=== PATIENT | male | born 1960 | race African-American/Black ===

== ENCOUNTER → 2016-12-31 | Outpatient (CLI) | payer OTHER ==
[~2016-12-31] MED LIST: ALBUTEROL17 GM INH; ALLERCLEAR10 MG PO; AMLODIPINE BESYL5 MG PO; ASPIRIN81 M2 PO; GABAPENTIN300 M2 PO; LOSARTAN POTAS100 MG PO; METHOCARBAMOL500 MG PO; NICOTINE TRANSD21 MG EXT; OMEPRAZOLE40 M1 PO; OXYCODON HCL-1 UDTA1 PO; PANTOPRAZOLE SO40 MG PO; PAROXETINE HCL20 MG PO; PRAVASTATIN SOD40 MG PO; SYMBICORT INH; VIAGRA; VIAGRA PO
--- NOTE | ~2016-12-31 | US136 ---
[facility] A Service of [facility] & [facility] RADIOLOGY TEXT RESULTS PATIENT: RAQUEL HARDIN LOCATION: CNIV : 64 UNIT #: [id number] AGE: [address]: Radha Art MD SEX: M ORDER DR: [id number] [facility] [address] [place], [place] [address] [id number] O MR#: [id number] Acc #: [id number] NAME: RAQUEL HARDIN : 1960 SEX: M STUDY DATE/TIME: 12/31/2016 10:07 UNIT: CNIV ROOM: STUDY DESCRIPTION: U/L Ext Art Study [facility] Bil Attending Physician: Radha Art M.D. Referring Physician: Radha Art M.D. Ordering Physician: Radha Art M.D. MEDICAL IMAGING REPORT This report is preliminary unless electronic signature is present EXAM Bilateral ankle-brachial indices HISTORY Bilateral lower extremity claudication, numbness and tingling and edema. Diarrhea. Peripheral vascular disease. FINDINGS Peak brachial pressures are 160 on the right and 162 on the left. At the right ankle, peak pressures are 129 dorsalis pedis and 124 posterior tibial, for an ankle-brachial index of 0.80 at the dorsalis pedis and 0.77 at the posterior tibial. Right great toe pressure is 151 for a toe-brachial index of 0.93. At the left ankle, peak pressures are 119 posterior tibial and 114 dorsalis pedis, for an ankle-brachial index of 0.73 at the posterior tibial and 0.70 at the dorsalis pedis. Left great toe pressure is 175 for a toe-brachial index of 1.08. IMPRESSION Fqrl-jg-gekhjdar arterial stenosis in the lower extremities with ankle-brachial indices measuring 0.80 on the right and 0.73 on the left. Dictated by... Ajit Phillip M.D. THIS IS AN ELECTRONICALLY VERIFIED REPORT Ajit Phillip M.D. at 01/03/2017 10:13 AM DFL/pcl STS. [facility] A Service of [facility] & [facility] RADIOLOGY TEXT RESULTS PATIENT: RAQUEL HARDIN LOCATION: CNIV : 64 UNIT #: [id number] AGE: [address]: Radha Art MD SEX: M ORDER DR: TD: 12/31/2016 22:40 JOB #: [id number] MEDICAL IMAGING REPORT Page 1 of 1 COPY
== END | disposition home or self-care (01) ==
LOC: CNIV 09:58
DX: M79.662 Pain in left lower leg (principal); M79.661 Pain in right lower leg; I70.203 Unspecified atherosclerosis of native arteries of extremities, bilateral legs
CPT/HCPCS: 93922